=== PATIENT | male | born 1985 | race Two or more races ===

== ENCOUNTER 2025-04-25 12:20 | Emergency (ER) | payer MEDICAID, OTHER ==
[~2025-04-25] VITALS: Ht 160 cm; Wt 78.5 kg
[2025-04-25] MEDS: HYDROcodone-ACET 5/325MG TAB PO ONE (13:45)
--- NOTE | 2025-04-25 14:11 | DVH ---
CLINICAL INDICATION: right knee pain TECHNIQUE: XY R KNEE 3V XRAY COMPARISON: None FINDINGS/IMPRESSION: There is no evidence of acute fracture or dislocation. Small knee effusion in the suprapatellar recess.
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
[2025-04-25] MEDS: TETANUS-DIPTH-ACEL PERTUSSIS 0.5ML SYR Tdap IM ONE (14:22)
[2025-04-25 17:02] VITALS: BP 114/73; PULSE 66; RESP 16; TEMP 98.2; O2SAT 98
[2025-04-25] MEDS: LIDOCAINE W/ EPINEPHRINE 1% 20ML VIAL ID ONE (18:55)
== END 2025-04-25 19:20 | disposition left against medical advice (07) ==
LOC: ER 12:20
DX: S81.011A Laceration without foreign body, right knee, initial encounter (principal); V89.2XXA Person injured in unspecified motor-vehicle accident, traffic, initial encounter; Y93.89 Activity, other specified; Y92.488 Other paved roadways as the place of occurrence of the external cause; Y99.8 Other external cause status
CPT/HCPCS: 73562; 90471; 90715